=== PATIENT | male | born 1995 | race Caucasian/White ===

== ENCOUNTER 2019-05-17 20:23 | Emergency (ER) | payer BC ==
[~2019-05-17] VITALS: Ht 167.6 cm; Wt 65.9 kg
[2019-05-17] MEDS ORDERED: diphenhydrAMINE 50 mg/ml inj IV ONE (20:35)
[2019-05-17] MEDS ORDERED: famotidine/PF 10 mg/ml inj IV ONE (21:40)
[2019-05-17] MEDS ORDERED: methylPREDNISolone sod succ 125mg/2ml vial IV ONE (21:40)
[2019-05-17 22:03] VITALS: BP 111/66
== END 2019-05-17 22:00 | disposition home or self-care (01) ==
LOC: ER 20:24
DX: T78.01XA Anaphylactic reaction due to peanuts, initial encounter (principal); Z91.010 Allergy to peanuts; Y92.89 Other specified places as the place of occurrence of the external cause
CPT/HCPCS: 96374; 96375; 99283; J1200; J2930; J3490